=== PATIENT | female | born 1995 | race Asian ===

== ENCOUNTER → 2017-07-12 14:53 | Outpatient (CLI) | payer BC, SELFPAY ==
[2017-07-12 18:13] LABS: Absolute Neutrophil Count 3.1 X10^3/uL (2.0-7.7); Basophil# 0.02 X10^3/uL; Basophil% 0.4 % (0-1); Eosinophil# 0.02 X10^3/uL; Eosinophils% 0.4 % (0-5); Hemoglobin 13.7 g/dl (12.0-15.0); Mean Corp Hgb Conc 34.3 g/gl (32-36); Mean Corpuscular Hgb 32.9 pg (27.0-32.0); Mean Corpuscular Volume 96.2 fL (81-99); Mean Platelet Vol. 10.5 fl (6.2-12.0); Monocyte# 0.33 X10^3/uL; Neutrophil # 3.05 X10^3/uL (2.7-7.7); Platelet Count 220 K/mm3 (150-450); RBC Distribution Width CV 11.9 % (11.6-14.6); RBC Distribution Width SD 41.2 fl (35.1-43.9); Red Blood Count 4.16 M/mm3 (4.2-5.4); White Blood Count 5.5 K/mm3 (4.4-11.0)
[2017-07-12 18:17] LABS: POSITIVE COUNT NO; POSITIVE DIFFERENTIAL NO; POSITIVE MORPHOLOGY NO
[2017-07-12 18:30] LABS: Vitamin D,25 Hydroxy 16.7 ng/mL (29.95-100.01)
[2017-07-12 19:01] LABS: ALB/GLOB Ratio 0.9 RATIO (0.9-2.4); AST(SGOT) 24 U/L (15-37); Alanine Aminotransfer ALT/SGPT 21 U/L (13-56); Albumin, Serum 3.8 g/dL (3.2-5.0); Alkaline Phosphatase 64 U/L (45-117); Anion Gap 8 (5-15); BUN 12 mg/dL (7-18); BUN/Creat Ratio 19.7 RATIO (10-20); Calcium,Total 9.1 mg/dL (8.5-10.1); Chloride 103 mmol/L (98-107); Creatinine, Serum 0.61 mg/dL (0.55-1.02); EST Glomerular Filtration Rate 132 mL/min (>60); Est Glom Filt Rate - Afr Amer 160 mL/min (>60); Free T3 2.9 pg/mL (2.18-3.98); Globulin 4.1 g/dL (2.2-4.2); Glucose 77 mg/dL (74-106); Potassium 3.6 mmol/L (3.5-5.1); Protein, Total 7.9 g/dL (6.4-8.2); Sodium Level 138 mmol/L (136-145); T4 Free Direct 1.18 ng/dL (0.76-1.46); Thyroid Stim Hormone (TSH) 1.69 uIU/mL (0.358-3.74)
[2017-07-14 14:07] LABS: Thyroid Peroxidase AB 9 IU/mL (0-34)
[2017-07-14 14:25] LABS: Thyroglobulin Antibody < 1.0 IU/mL (0.0-0.9)
[2017-07-14 14:26] LABS: ANTINUCLEAR ANTIBODIES DIRECT Negative (Negative)
[2017-07-15 12:39] LABS: Anti-Thyroglobulin AB < 1.0 IU/mL (0.0-0.9)
== END ==
PROVIDERS: Visit Provider Family Medicine
DX: L65.9 Nonscarring hair loss, unspecified (principal)
CPT/HCPCS: 36415; 80053; 82306; 82746; 84432; 84439; 84443; 84481; 85025; 86038; 86376; 86800

== ENCOUNTER → 2018-09-05 11:52 | Outpatient (CLI) | payer BC, SELFPAY ==
[2018-09-05 15:50] LABS: Vitamin D,25 Hydroxy 19.7 ng/mL (29.95-100.01)
== END ==
PROVIDERS: Family Provider Family Medicine; PCP Family Medicine; Referring Provider Family Medicine; Visit Provider Family Medicine
DX: E55.9 Vitamin D deficiency, unspecified (principal)
CPT/HCPCS: 36415; 82306